=== PATIENT | female | born 1980 | race Caucasian/White ===

== ENCOUNTER 2020-11-13 14:57 | Inpatient (IN) | payer BC ==
[~2020-11-13] VITALS: Ht 157.5 cm; Wt 85.6 kg
[2020-11-13] MEDS ORDERED: MORPHINE SULFATE 4 MG/ML, 1ML IVPush PRN (15:30)
[2020-11-13] MEDS ORDERED: ONDANSETRON 2MG/ML, 2ML IVPush PRN (15:30)
[2020-11-13] MEDS ORDERED: SUCR1TAB33 PO (17:00)
[2020-11-13] MEDS ORDERED: PLEASE ENTER HEIGHT AND WEIGHT MC SCH (17:00)
[2020-11-13] MEDS ORDERED: PLEASE ENTER ALLERGIES MC SCH (17:00)
[2020-11-13] MEDS ORDERED: ACETAMINOPHEN 500 MG TABLET PO PRN (18:30)
[2020-11-13 18:35] VITALS: BP 118/82
[2020-11-13] MEDS ORDERED: GOLYTELY 4,000ML ORAL.SOL PO ONE (19:00)
[2020-11-13 19:13] LABS: BASOPHILS % (AUTO) 1 % (0-1); EOSINOPHILS % (AUTO) 1 % (1-7); LYMPHOCYTES % (AUTO) 21 % (22-44); MEAN CORPUSCULAR HEMOGLOBIN 24.8 pg (27.0-34.8); MEAN CORPUSCULAR HGB CONC 33.2 g/dL (32.4-35.8); MEAN PLATELET VOLUME 6.6 fL (7.4-10.4); MONOCYTES % (AUTO) 6 % (2-9); NEUTROPHILS % (AUTO) 72 % (42-75); PLATELET COUNT 694 x10^3/uL (130-400); RED BLOOD COUNT 4.93 x10^6/uL (3.82-5.3); RED CELL DISTRIBUTION WIDTH 14.5 % (9.6-15.2)
[2020-11-13 19:17] LABS: ALANINE AMINOTRANSFERASE 18 U/L (12-78); ALBUMIN 3.5 g/dL (3.4-5.0); ANION GAP 8 mmol/L (5-15); CALCIUM 9.5 mg/dL (8.5-10.1); CHLORIDE 103 mmol/L (98-107); CREATININE 0.75 mg/dL (0.55-1.02)
[2020-11-13 19:19] LABS: INTERNATIONAL NORMALIZED RATIO 1.12 (0.93-1.1)
[2020-11-13 19:20] LABS: ALKALINE PHOSPHATASE 100 U/L (45-117); BILIRUBIN,TOTAL 0.4 mg/dL (0.2-1.0); TOTAL PROTEIN 8.3 g/dL (6.4-8.2)
[2020-11-13 19:34] LABS: MD SCAN
[2020-11-13 19:43] LABS: MICROSCOPIC NOT IND
[2020-11-13] MEDS: SODIUM CHLORIDE 0.9% 1,000 ML IV SCH (19:56)
[2020-11-13] MEDS: FAMOTIDINE 20 MG/2 ML IVPush SCH (21:15)
[2020-11-13] MEDS: METOCLOPRAMIDE 5 MG/ML, 2ML IVPush PRN (22:12)
[2020-11-14 00:57] VITALS: BP 119/83
[2020-11-14] MEDS: SODIUM CHLORIDE 0.9% 1,000 ML IV SCH ×3 (06:16→21:51)
[2020-11-14 08:00] VITALS: BP 124/83
[2020-11-14] MEDS ORDERED: D5%-0.45NACL+KCL 40MEQ 1,000 ML IV SCH (08:00)
[2020-11-14] MEDS: FAMOTIDINE 20 MG/2 ML IVPush SCH ×2 (08:05→19:58)
[2020-11-14 08:46] LABS: ALANINE AMINOTRANSFERASE 16 U/L (12-78); ALBUMIN 3.2 g/dL (3.4-5.0); ANION GAP 9 mmol/L (5-15); CALCIUM 8.9 mg/dL (8.5-10.1); CHLORIDE 107 mmol/L (98-107); CREATININE 0.68 mg/dL (0.55-1.02)
[2020-11-14 08:48] LABS: ALKALINE PHOSPHATASE 90 U/L (45-117); BILIRUBIN,TOTAL 0.4 mg/dL (0.2-1.0); TOTAL PROTEIN 7.6 g/dL (6.4-8.2)
[2020-11-14 14:00] VITALS: BP 125/87
[2020-11-14 18:40] VITALS: BP 111/73
[2020-11-15 00:04] VITALS: BP 107/73
[2020-11-15 05:37] LABS: ANION GAP 7 mmol/L (5-15); CALCIUM 8.8 mg/dL (8.5-10.1); CHLORIDE 112 mmol/L (98-107); CREATININE 0.67 mg/dL (0.55-1.02)
[2020-11-15 08:30] VITALS: BP 123/82
[2020-11-15] MEDS: FAMOTIDINE 20 MG/2 ML IVPush SCH ×2 (09:37→21:11)
[2020-11-15] MEDS: SODIUM CHLORIDE 0.9% 1,000 ML IV SCH (09:47)
[2020-11-15] MEDS ORDERED: CHLORHEXIDINE 15 ML UDC ONE (13:20)
[2020-11-15] MEDS ORDERED: hydrALAzine 20 MG/ML, 1ML IV PRN (14:00)
[2020-11-15] MEDS ORDERED: HYDROmorphone 1 MG/ML, 1ML INJ IVPush PRN (14:00)
[2020-11-15] MEDS ORDERED: PROMETHAZINE 25 MG/ML, 1ML IVPush PRN (14:00)
[2020-11-15] MEDS ORDERED: MEPERIDINE/PF 25MG/0.5ML IVPush PRN (14:00)
[2020-11-15] MEDS ORDERED: LABETALOL 5MG/ML, 20ML IV PRN (14:00)
[2020-11-15] MEDS ORDERED: FENTANYL PF 100 MCG/2ML IV PRN (14:00)
[2020-11-15] MEDS ORDERED: DIPHENHYDRAMINE 50 MG/ML, 1ML IVPush PRN (14:00)
[2020-11-15] MEDS ORDERED: HALOPERIDOL 5 MG/ML IV PRN (14:00)
[2020-11-15] MEDS ORDERED: PROPOFOL 10 MG/ML, 50ML ONE (14:25)
[2020-11-15] MEDS ORDERED: FENTANYL PF 100 MCG/2ML ONE (14:37)
[2020-11-15 16:00] VITALS: BP 108/76
[2020-11-15 19:09] VITALS: BP 105/71
[2020-11-16 01:39] VITALS: BP 114/76
[2020-11-16] MEDS: SODIUM CHLORIDE 0.9% 1,000 ML IV SCH ×2 (01:41→14:31)
[2020-11-16 07:05] VITALS: BP 113/77
[2020-11-16] MEDS: FAMOTIDINE 20 MG/2 ML IVPush SCH (09:29)
[2020-11-16 13:20] VITALS: BP 113/75
[2020-11-16] MEDS ORDERED: CHLORHEXIDINE 15 ML UDC ONE (14:15)
[2020-11-16] MEDS ORDERED: CHLORHEXIDINE 15 ML UDC MM ONE (14:30)
[2020-11-16] MEDS ORDERED: MIDAZOLAM 1 MG/ML, 2ML ONE ×2 (15:43→16:41)
[2020-11-16] MEDS ORDERED: SUCCINYLCHOLINE 20 MG/ML, 10ML ONE ×2 (16:01→21:47)
[2020-11-16] MEDS ORDERED: ROCURONIUM 10MG/ML,5ML ONE ×4 (16:01→21:47)
[2020-11-16] MEDS ORDERED: FENTANYL PF 250 MCG/5ML ONE (16:01)
[2020-11-16] MEDS ORDERED: GLYCOPYRROLATE 0.2MG/1ML, 5ML ONE ×2 (16:01→21:47)
[2020-11-16] MEDS ORDERED: ONDANSETRON 2MG/ML, 2ML ONE ×2 (16:01→21:47)
[2020-11-16] MEDS ORDERED: NEOSTIGMINE 1 MG/ML, 10ML ONE ×2 (16:01→21:47)
[2020-11-16] MEDS ORDERED: CEFAZOLIN 1,000 MG ONE ×2 (16:01→21:47)
[2020-11-16] MEDS ORDERED: PROPOFOL 10 MG/ML, 20ML ONE ×2 (16:01→21:47)
[2020-11-16] MEDS ORDERED: DEXAMETHASONE 4 MG/ML, 1ML ONE ×2 (16:01→21:47)
[2020-11-16] MEDS ORDERED: SCOPOLAMINE 1MG PATCH TD ONE (16:27)
[2020-11-16] MEDS ORDERED: INDIGO CARMINE 0.8%, 5ML ONE (16:44)
[2020-11-16] MEDS ORDERED: HEPARIN 1,000 UNITS/ML, 10ML ONE (16:44)
[2020-11-16] MEDS ORDERED: METHYLENE BLUE 50 MG/10 ML AMP ONE (16:44)
[2020-11-16] MEDS ORDERED: CLINDAMYCIN 150 MG/ML, 6ML ONE ×2 (17:38→21:11)
[2020-11-16] MEDS ORDERED: EPHEDRINE 50 MG/ML, 1ML IVPush PRN (18:30)
[2020-11-16] MEDS ORDERED: NALOXONE 0.4 MG/ML, 1ML IVPush PRN ×2 (18:30)
[2020-11-16] MEDS ORDERED: METOCLOPRAMIDE 5 MG/ML, 2ML IVPush PRN (18:30)
[2020-11-16] MEDS ORDERED: EPIDURAL CONTINUOUS INFUSION EPIDCONT SCH (18:30)
[2020-11-16] MEDS ORDERED: DO NOT GIVE XX SCH (18:30)
[2020-11-16] MEDS ORDERED: HYDROMORPHONE EPIDCONT SCH ×2 (19:30)
[2020-11-16] MEDS ORDERED: BUPIVACAINE EPIDCONT SCH ×2 (19:30)
[2020-11-16] MEDS ORDERED: SODIUM CHLORIDE 0.9% EPIDCONT SCH ×2 (19:30)
[2020-11-16] MEDS ORDERED: EPHEDRINE 50 MG/ML, 1ML ONE (21:47)
[2020-11-16] MEDS ORDERED: PHENYLEPHRINE 10 MG/ML ONE (21:47)
[2020-11-16] MEDS ORDERED: BUPIVACAINE/PF 0.25% ONE ×2 (21:47)
[2020-11-16] MEDS ORDERED: PROPOFOL 50 ML ONE (22:07)
[2020-11-16] MEDS ORDERED: FENTANYL PF 100 MCG/2ML ONE (23:04)
[2020-11-16] MEDS ORDERED: HYDROmorphone 1 MG/ML, 1ML INJ ONE (23:04)
[2020-11-16] MEDS: FENTANYL PF 100 MCG/2ML IV PRN ×2 (23:05→23:18)
[2020-11-16] MEDS ORDERED: ACETAMINOPHEN 100 ML IVPB STA (23:09)
[2020-11-16] MEDS ORDERED: KETOROLAC 30 MG/1 ML ONE (23:09)
[2020-11-16] MEDS: HYDROmorphone 1 MG/ML, 1ML INJ IVPush PRN ×2 (23:13→23:18)
[2020-11-16] MEDS ORDERED: KETOROLAC 30 MG/1 ML IVPush ONE (23:30)
[2020-11-16] MEDS ORDERED: HYDROmorphone 2 MG/ML, 1ML IVPush PRN (23:30)
[2020-11-17] MEDS ORDERED: PHENYLEPHRINE 50 MG in SODIUM CHLORIDE 0.9% 245 ML IV PRN
[2020-11-17] MEDS: SODIUM CHLORIDE 0.9% 1,000 ML IV SCH ×3 (00:36→21:00)
[2020-11-17] MEDS: SODIUM CHLORIDE FLUSH 10ML SYR IVF SCH ×3 (00:37→20:12)
[2020-11-17] MEDS: FAMOTIDINE 20 MG/2 ML IVPush SCH ×3 (00:38→20:12)
[2020-11-17 04:50] LABS: BASOPHILS % (AUTO) 0 % (0-1); EOSINOPHILS % (AUTO) 0 % (1-7); LYMPHOCYTES % (AUTO) 8 % (22-44); MEAN CORPUSCULAR HEMOGLOBIN 24.7 pg (27.0-34.8); MEAN CORPUSCULAR HGB CONC 32.5 g/dL (32.4-35.8); MEAN PLATELET VOLUME 6.5 fL (7.4-10.4); MONOCYTES % (AUTO) 8 % (2-9); NEUTROPHILS % (AUTO) 83 % (42-75); PLATELET COUNT 668 x10^3/uL (130-400); RED BLOOD COUNT 4.24 x10^6/uL (3.82-5.3); RED CELL DISTRIBUTION WIDTH 14.6 % (9.6-15.2)
[2020-11-17 05:01] LABS: CHLORIDE 104 mmol/L (98-107)
[2020-11-17 05:05] LABS: ANION GAP 11 mmol/L (5-15); CALCIUM 7.1 mg/dL (8.5-10.1); CREATININE 0.53 mg/dL (0.55-1.02)
[2020-11-17 05:24] LABS: MD SCAN
[2020-11-17] MEDS ORDERED: SODIUM CHLORIDE 0.9% 1,000ML IVBOLUS ONE (14:30)
[2020-11-18] MEDS: SODIUM CHLORIDE 0.9% 1,000 ML IV SCH ×2 (03:52→13:28)
[2020-11-18 04:17] LABS: BASOPHILS % (AUTO) 0 % (0-1); EOSINOPHILS % (AUTO) 0 % (1-7); LYMPHOCYTES % (AUTO) 11 % (22-44); MEAN CORPUSCULAR HEMOGLOBIN 24.8 pg (27.0-34.8); MEAN CORPUSCULAR HGB CONC 33.1 g/dL (32.4-35.8); MEAN PLATELET VOLUME 6.5 fL (7.4-10.4); MONOCYTES % (AUTO) 10 % (2-9); NEUTROPHILS % (AUTO) 79 % (42-75); PLATELET COUNT 584 x10^3/uL (130-400); RED BLOOD COUNT 4.19 x10^6/uL (3.82-5.3); RED CELL DISTRIBUTION WIDTH 14.5 % (9.6-15.2)
[2020-11-18 04:27] LABS: ALANINE AMINOTRANSFERASE 39 U/L (12-78); ALBUMIN 1.8 g/dL (3.4-5.0); ANION GAP 7 mmol/L (5-15); CALCIUM 7.1 mg/dL (8.5-10.1); CHLORIDE 106 mmol/L (98-107); CREATININE 1.07 mg/dL (0.55-1.02)
[2020-11-18 04:29] LABS: ALKALINE PHOSPHATASE 59 U/L (45-117); BILIRUBIN,TOTAL 0.6 mg/dL (0.2-1.0); TOTAL PROTEIN 5.1 g/dL (6.4-8.2)
[2020-11-18 04:39] LABS: MD SCAN
[2020-11-18] MEDS: FAMOTIDINE 20 MG/2 ML IVPush SCH ×2 (09:00→20:29)
[2020-11-18] MEDS: SODIUM CHLORIDE FLUSH 10ML SYR IVF SCH ×2 (09:00→20:30)
[2020-11-18] MEDS ORDERED: SODIUM CHLORIDE 0.9% 1,000 ML IV SCH (12:00)
[2020-11-18] MEDS ORDERED: KETOROLAC 30 MG/1 ML IVPush SCH (18:00)
[2020-11-18] MEDS ORDERED: OXYcodone/APAP 7.5/325MG TABLET PO PRN (18:00)
[2020-11-18] MEDS ORDERED: HYDROmorphone 2 MG/ML, 1ML IVPush PRN (18:00)
[2020-11-19] MEDS: METOCLOPRAMIDE 5 MG/ML, 2ML IVPush PRN (00:15)
[2020-11-19] MEDS: SODIUM CHLORIDE 0.9% 1,000 ML IV SCH ×3 (04:00→20:57)
[2020-11-19 04:51] LABS: ANION GAP 8 mmol/L (5-15); CALCIUM 7.5 mg/dL (8.5-10.1); CHLORIDE 108 mmol/L (98-107); CREATININE 0.68 mg/dL (0.55-1.02)
[2020-11-19 05:00] LABS: BASOPHILS % (AUTO) 0 % (0-1); EOSINOPHILS % (AUTO) 0 % (1-7); LYMPHOCYTES % (AUTO) 9 % (22-44); MEAN CORPUSCULAR HGB CONC 33.5 g/dL (32.4-35.8); MEAN PLATELET VOLUME 6.7 fL (7.4-10.4); MONOCYTES % (AUTO) 9 % (2-9); NEUTROPHILS % (AUTO) 82 % (42-75); PLATELET COUNT 447 x10^3/uL (130-400); RED BLOOD COUNT 3.37 x10^6/uL (3.82-5.3); RED CELL DISTRIBUTION WIDTH 15.2 % (9.6-15.2)
[2020-11-19 05:03] LABS: MD NO
[2020-11-19] MEDS: ONDANSETRON 2MG/ML, 2ML IVPush PRN (06:12)
[2020-11-19] MEDS: SODIUM CHLORIDE FLUSH 10ML SYR IVF SCH ×2 (08:43→20:58)
[2020-11-19] MEDS: FAMOTIDINE 20 MG/2 ML IVPush SCH ×2 (08:43→20:57)
[2020-11-19 13:27] VITALS: BP 114/78
[2020-11-19] MEDS: OXYcodone/APAP 5/325MG TABLET PO PRN ×2 (13:30→19:43)
[2020-11-19 19:39] VITALS: BP 125/84
[2020-11-20] MEDS: ONDANSETRON 2MG/ML, 2ML IVPush PRN ×3 (00:38→19:29)
[2020-11-20] MEDS: KETOROLAC 30 MG/1 ML IVPush PRN ×4 (00:49→21:01)
[2020-11-20 00:53] VITALS: BP 125/86
[2020-11-20] MEDS: SODIUM CHLORIDE 0.9% 1,000 ML IV SCH ×3 (04:44→23:11)
[2020-11-20] MEDS: FAMOTIDINE 20 MG/2 ML IVPush SCH ×2 (07:30→19:29)
[2020-11-20] MEDS: SODIUM CHLORIDE FLUSH 10ML SYR IVF SCH ×2 (07:30→21:00)
[2020-11-20 09:12] VITALS: BP 113/79
[2020-11-20 13:51] VITALS: BP 110/74
[2020-11-20 18:38] VITALS: BP 121/78
[2020-11-21 02:24] VITALS: BP 128/91
[2020-11-21] MEDS: KETOROLAC 30 MG/1 ML IVPush PRN ×2 (04:59→12:15)
[2020-11-21 07:19] VITALS: BP 126/86
[2020-11-21] MEDS: ONDANSETRON 2MG/ML, 2ML IVPush PRN (07:27)
[2020-11-21] MEDS: FAMOTIDINE 20 MG/2 ML IVPush SCH ×2 (07:27→21:06)
[2020-11-21] MEDS: SODIUM CHLORIDE FLUSH 10ML SYR IVF SCH ×2 (07:28→21:07)
[2020-11-21 13:55] VITALS: BP 124/85
[2020-11-21] MEDS: IBUPROFEN 600 MG TABLET PO SCH ×2 (16:44→21:06)
[2020-11-21 16:46] LABS: BASOPHILS % (AUTO) 0 % (0-1); EOSINOPHILS % (AUTO) 6 % (1-7); LYMPHOCYTES % (AUTO) 22 % (22-44); MEAN CORPUSCULAR HEMOGLOBIN 25.1 pg (27.0-34.8); MEAN CORPUSCULAR HGB CONC 33.4 g/dL (32.4-35.8); MEAN PLATELET VOLUME 6.6 fL (7.4-10.4); MONOCYTES % (AUTO) 9 % (2-9); NEUTROPHILS % (AUTO) 63 % (42-75); PLATELET COUNT 592 x10^3/uL (130-400); RED BLOOD COUNT 3.23 x10^6/uL (3.82-5.3); RED CELL DISTRIBUTION WIDTH 15.4 % (9.6-15.2)
[2020-11-21 16:49] LABS: MD NO
[2020-11-21 18:50] VITALS: BP 115/75
[2020-11-21] MEDS: HYDROcodone/APAP 5/325 TABLET PO PRN (19:51)
[2020-11-22 02:34] VITALS: BP 126/81
[2020-11-22 04:55] LABS: BASOPHILS % (AUTO) 1 % (0-1); EOSINOPHILS % (AUTO) 6 % (1-7); LYMPHOCYTES % (AUTO) 25 % (22-44); MEAN CORPUSCULAR HEMOGLOBIN 24.8 pg (27.0-34.8); MEAN CORPUSCULAR HGB CONC 33.4 g/dL (32.4-35.8); MEAN PLATELET VOLUME 6.5 fL (7.4-10.4); MONOCYTES % (AUTO) 9 % (2-9); NEUTROPHILS % (AUTO) 60 % (42-75); PLATELET COUNT 589 x10^3/uL (130-400); RED BLOOD COUNT 3.32 x10^6/uL (3.82-5.3); RED CELL DISTRIBUTION WIDTH 15.2 % (9.6-15.2)
[2020-11-22 05:05] LABS: CALCIUM 8.3 mg/dL (8.5-10.1); CHLORIDE 109 mmol/L (98-107); CREATININE 0.61 mg/dL (0.55-1.02)
[2020-11-22 05:08] LABS: MD NO
[2020-11-22 05:12] LABS: ANION GAP 7 mmol/L (5-15)
[2020-11-22] MEDS: IBUPROFEN 600 MG TABLET PO SCH ×4 (06:03→21:21)
[2020-11-22 08:28] VITALS: BP 128/85
[2020-11-22] MEDS ORDERED: POTASSIUM CHLORIDE 40 MEQ in SODIUM CHLORIDE 0.9% 500 ML IV ONE (08:30)
[2020-11-22] MEDS: ONDANSETRON 2MG/ML, 2ML IVPush PRN (08:51)
[2020-11-22] MEDS: FAMOTIDINE 20 MG/2 ML IVPush SCH (08:51)
[2020-11-22] MEDS: SODIUM CHLORIDE FLUSH 10ML SYR IVF SCH ×2 (09:00→21:20)
[2020-11-22] MEDS: HYDROcodone/APAP 5/325 TABLET PO PRN (09:42)
[2020-11-22 15:49] VITALS: BP 130/84
[2020-11-22 18:51] VITALS: BP 130/88
[2020-11-22] MEDS: FAMOTIDINE 20 MG TABLET PO SCH (21:21)
[2020-11-23 02:51] VITALS: BP 135/92
[2020-11-23 05:22] LABS: ANION GAP 6 mmol/L (5-15); CALCIUM 8.5 mg/dL (8.5-10.1); CHLORIDE 108 mmol/L (98-107); CREATININE 0.63 mg/dL (0.55-1.02)
[2020-11-23] MEDS: IBUPROFEN 600 MG TABLET PO SCH ×4 (05:23→20:40)
[2020-11-23 07:35] VITALS: BP 142/88
[2020-11-23] MEDS ORDERED: POTASSIUM CHLORIDE 20 MEQ in SODIUM CHLORIDE 0.9% 250 ML IV ONE (09:00)
[2020-11-23] MEDS ORDERED: POTASSIUM CHLORIDE 60 MEQ in SODIUM CHLORIDE 0.9% 1,000 ML IV ONE (09:37)
[2020-11-23] MEDS: FAMOTIDINE 20 MG TABLET PO SCH ×2 (10:37→20:40)
[2020-11-23] MEDS: SODIUM CHLORIDE FLUSH 10ML SYR IVF SCH ×2 (10:37→20:40)
[2020-11-23 12:50] VITALS: BP 133/81
[2020-11-23] MEDS ORDERED: OMNIPAQUE 350 MG/ML, 100ML BOTTLE ONE (17:20)
[2020-11-23 19:30] VITALS: BP 130/86
[2020-11-24 02:36] VITALS: BP 142/86
[2020-11-24] MEDS: IBUPROFEN 600 MG TABLET PO SCH ×4 (05:08→20:33)
[2020-11-24 05:31] LABS: ANION GAP 4 mmol/L (5-15); CALCIUM 8.6 mg/dL (8.5-10.1); CHLORIDE 107 mmol/L (98-107)
[2020-11-24 05:32] LABS: CREATININE 0.69 mg/dL (0.55-1.02)
[2020-11-24 07:47] VITALS: BP 125/83
[2020-11-24] MEDS: FAMOTIDINE 20 MG TABLET PO SCH ×2 (09:14→20:33)
[2020-11-24] MEDS: SODIUM CHLORIDE FLUSH 10ML SYR IVF SCH ×2 (09:14→20:34)
[2020-11-24] MEDS ORDERED: POTASSIUM CHLORIDE 60 MEQ in SODIUM CHLORIDE 0.9% 1,000 ML IV ONE (11:30)
[2020-11-24 13:19] VITALS: BP 126/80
[2020-11-24] MEDS: POTASSIUM CHLORIDE 20 MEQ TAB.ER.PRT PO SCH (16:50)
[2020-11-24 18:44] VITALS: BP 130/85
[2020-11-25 00:53] VITALS: BP 138/93
[2020-11-25 05:02] LABS: ALANINE AMINOTRANSFERASE 39 U/L (12-78); ALBUMIN 1.9 g/dL (3.4-5.0); ANION GAP 7 mmol/L (5-15); CALCIUM 7.9 mg/dL (8.5-10.1); CHLORIDE 108 mmol/L (98-107); CREATININE 0.69 mg/dL (0.55-1.02)
[2020-11-25 05:04] LABS: ALKALINE PHOSPHATASE 154 U/L (45-117); BILIRUBIN,TOTAL 0.4 mg/dL (0.2-1.0); TOTAL PROTEIN 5.6 g/dL (6.4-8.2)
[2020-11-25] MEDS: IBUPROFEN 600 MG TABLET PO SCH ×2 (05:24→11:11)
[2020-11-25 07:25] VITALS: BP 130/86
[2020-11-25] MEDS: SODIUM CHLORIDE FLUSH 10ML SYR IVF SCH (08:33)
[2020-11-25] MEDS: POTASSIUM CHLORIDE 20 MEQ TAB.ER.PRT PO SCH (08:33)
[2020-11-25] MEDS: FAMOTIDINE 20 MG TABLET PO SCH (08:33)
[2020-11-25 13:53] VITALS: BP 123/82
[2020-11-25] MEDS ORDERED: HYDR-1067 PO (15:32)
[2020-11-25] MEDS ORDERED: POTA20TA6 PO (15:32)
[2020-11-25] MEDS ORDERED: ONDA4VIA60 PO (15:37)
[2020-11-25] MEDS ORDERED: ONDA4TAB7 PO (15:53)
[2020-11-25] MEDS ORDERED: POTA20TA14 PO (15:54)
== END 2020-11-25 16:45 | disposition home or self-care (01) | DRG 357 ==
LOC: 4NW 16:35 → CCU 11-17 → 4NW 11-19 13:20
PROVIDERS: ADMIT Specialist; ATTEND Specialist
PROC: 0DJD8ZZ Inspection of Lower Intestinal Tract, Via Natural or Artificial Opening Endoscopic (ICD-10-PCS; principal; 2020-11-15 14:00)
PROC: 0UT90ZZ Resection of Uterus, Open Approach (ICD-10-PCS; 2020-11-16)
PROC: 0DBU0ZZ Excision of Omentum, Open Approach (ICD-10-PCS; 2020-11-16)
PROC: 0UT20ZZ Resection of Bilateral Ovaries, Open Approach (ICD-10-PCS; 2020-11-16)
PROC: 0UT70ZZ Resection of Bilateral Fallopian Tubes, Open Approach (ICD-10-PCS; 2020-11-16)
DX: R19.00 Intra-abdominal and pelvic swelling, mass and lump, unspecified site (principal); C78.6 Secondary malignant neoplasm of retroperitoneum and peritoneum; K61.1 Rectal abscess; K56.7 Ileus, unspecified; N94.6 Dysmenorrhea, unspecified; R18.8 Other ascites; E87.6 Hypokalemia; I95.81 Postprocedural hypotension; N92.0 Excessive and frequent menstruation with regular cycle; R97.0 Elevated carcinoembryonic antigen [CEA]; Z20.822 Contact with and (suspected) exposure to COVID-19; Z90.49 Acquired absence of other specified parts of digestive tract; Z88.5 Allergy status to narcotic agent; Z80.9 Family history of malignant neoplasm, unspecified
CPT/HCPCS: 36415; 74018; S0020; S0077; 71046; 74177; 74181; 80048; 80053; 81003; 82330; 82378; 82803; 82947; 83735; 84132; 84295; 84702; 85014; 85025; 85610; 85730; 86301; 86304; 86850; 86900; 86923; 87081; 87635; 88305; 88307; 88309; 88331; 88341; 88342; 93005; C1729; G0378; J0131; J0690; J1100; J1170; J1644; J1885; J2250; J2405; J2704; J2710; J3010; J3480; Q9967; Q9968; C1765; C1769; J0330; J2370; J2765; J7030; J7040; J7050